=== PATIENT | female | born 1970 | race Caucasian/White ===

== ENCOUNTER 2022-10-17 09:30 | Emergency (ER) | payer BC, SELFPAY ==
--- NOTE | ~2022-10-17 | CT_ITS ---
EXAMINATION: CT facial bones wo con DATE: 10/17/2022 10:20 INDICATION: Left upper dental infection. TECHNIQUE: Computed tomography (CT) of the facial bones and maxillofacial region was performed withou t intravenous contrast. Automated exposure control and iterative reconstruction technique were employ ed. The dose-length product was 318.71 mGy-cm. COMPARISON: None. FINDINGS: There is subcutaneous fat stranding in the cheeks, left worse than right. Note that some co mponent of this finding may be from cosmetic procedures . There is rightward deviation of the nasal s eptum. There is mild mucosal thickening in the paranasal sinuses. The mastoid air cells are normal. A rtifact from dental work obscures portions of the teeth. There are periapical lucencies at tooth 13 w ith communication with the maxillary sinus. There are periapical lucencies of tooth 31. Tooth 2 demon strates a carious lesion and periapical lucencies with communication with the maxillary sinus. IMPRESSION: 1. Dental disease. Reviewed, dictated and finalized at location A. IMPRESSION: 1. Dental disease.
[2022-10-17 09:37] VITALS: BP 178/114; O2SAT 100
[2022-10-17 09:41] VITALS: BP 178/114; PULSE 91; RESP 12; O2SAT 100
[2022-10-17 09:46] VITALS: BP 179/105; PULSE 86; RESP 16
[2022-10-17 09:50] VITALS: TEMP 36.4
--- NOTE | 2022-10-17 10:15 | ED.DENTAL ---
HPI - Dental/Oral General Chief complaint: Dental/Oral Stated complaint: jaw injury Time Seen by Provider: 10/17/22 09:33 Source: patient Mode of arrival: ambulatory Limitations: no limitations History of Present Illness HPI Narrative: Patient is a 52-year-old female who presents to the ED with concern for jaw dislocation. Patient reports she has a bad tooth on her left upper gumline, tooth #13. Patient reports she was using a toothpick to clean around her gums this morning. The toothpick got stuck under her gum. She then used her sister's dental tool to try to get the toothpick out. She was able to remove the toothpick, but when using the dental tool she reports that she feels like she shifted the top part of her mouth. She is concerned that she intruded into her sinus cavity and dislocated her palate. She does not feel like her teeth fit together as they normally do. She did have a brief sharp episode of pain however but is now able to open and close her mouth fully without pain. Denies any trismus. Denies difficulty breathing or swallowing. Denies bleeding. She has not tried contacting her dentist. Related Data Allergies Allergy/AdvReac Type Severity Reaction Status Date / Time No Known Allergies Allergy Unknown Verified 04/09/10 07:40 Review of Systems Review of Systems: CONSTITUTIONAL: Denies fever, chills, or sweats. ENT: See HPI. CARDIOVASCULAR: Denies chest pain. RESPIRATORY: Denies dyspnea. GASTROINTESTINAL: Denies abdominal pain, nausea, vomiting. All systems reviewed & are unremarkable except as noted in HPI and below PMFSH Past Medical History Medical History (Updated 10/17/22 @ 14:57 by Leslee Tate PA-C) HTN (hypertension) Exam Narrative: GENERAL: Anxious appearing, well-nourished, non-toxic, in no acute distress. HEAD: Normocephalic, atraumatic. ENT: Diffuse dental decay and scattered dental caries. Halitosis. Essentially the core of tooth #13 left upper side is rotten out, gumline surrounding this tooth and immediate neighboring teeth is inflamed and erythematous, tender to palpation. No trismus. No stridor. No chipped teeth. No evidence of obvious malocclusion. No tenderness over TMJ or outer jawline bilaterally. NECK: Supple. No adenopathy, no masses. RESPIRATORY: Airway patent, respirations nonlabored. Clear to auscultation bilaterally, no rales, rhonchi, wheezing. CARDIOVASCULAR: Regular rate and rhythm without murmurs, rubs, or gallops. Peripheral pulses 2+ and equal bilaterally. MUSCULOSKELETAL: Moves all extremities. Strength/ROM intact without gross deformities. SKIN: Warm, dry, normal color. No rashes. NEURO: A&O X3. Speech clear. Cranial nerves II-XII grossly intact. Steady gait. No ataxic movements. PSYCHIATRIC: Anxious. Normal interaction. Course Vital Signs Vital signs: Vital Signs Blood Pressure 178/114 H 10/17/22 09:37 Pulse Oximetry 100 10/17/22 09:37 Temperature 97.6 F 10/17/22 09:50 Pulse Rate 86 10/17/22 09:46 Respiratory Rate 16 10/17/22 09:46 Blood Pressure 179/105 H 10/17/22 09:46 Pulse Oximetry 100 10/17/22 09:41 Oxygen Delivery Room Air 10/17/22 09:41 MDM - Dental/Oral MDM Narrative Medical decision making narrative: CT facial bones obtained. Did show periapical communication with maxillary sinus and tooth #2 and tooth #13. Tooth #13 is the tooth in question. I discussed this with the radiologist and he reported that the communication into the sinus would have already been present. Patient did not introduce the communication into the sinus herself with the dental tool today. I discussed these imaging results in detail with patient and mother at bedside. The CT otherwise did not show any evidence of jaw dislocation or shifting. Patient is convinced that she has shifted her jaw. I advised against this and recommended that patient follow-up with a dentist and/or maxillofacial surgeon as soon as possible for po
--- NOTE | 2022-10-17 11:04 | PC.NURSE ---
Report received from J[facility]
== END 2022-10-17 11:17 | disposition home or self-care (01) ==
PROVIDERS: Emergency Provider Physician Assistant; PCP Student in an Organized Health Care Education/Training Program
DX: K02.9 Dental caries, unspecified (principal); K04.90 Unspecified diseases of pulp and periapical tissues; I10 Essential (primary) hypertension
CPT/HCPCS: 70486; 99284